=== PATIENT | male | born 1980 | race Two or more races ===

== ENCOUNTER 2017-06-02 10:31 | Emergency (ER) | payer MEDICAID ==
[~2017-06-02] VITALS: Ht 185.4 cm; Wt 98.9 kg
[2017-06-02 10:46] VITALS: Ht 185.4 cm; Wt 98.9 kg
[2017-06-02 13:57] VITALS: BP 145/82
== END 2017-06-02 13:57 | disposition home or self-care (01) ==
LOC: ED 10:31
DX: H81.10 Benign paroxysmal vertigo, unspecified ear (principal)
CPT/HCPCS: J8597